=== PATIENT | male | born 2000 | race Caucasian/White ===

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

== ENCOUNTER → 2019-09-15 | Outpatient (CLI) | payer BC ==
--- NOTE | 2019-09-18 09:23 | NM ---
EXAM DESCRIPTION: Bone Scan, limited: Nuclear Medicine CLINICAL HISTORY: 19 years Male SPONDYLOSIS W/O MYELOPATHY OR RADICULOPATHY, LOW BACK PAIN COMPARISON: MRI lumbar spine September 2017. TECHNIQUE: Patient injected with 26.4 mCi of technetium 99M MDP IV. Delayed gamma camera images lower thoracic spine, lumbar spine, and upper pelvis from various planes were obtained 3 hr after injection. SPECT imaging in 3 planes was also performed. FINDINGS: Focal abnormal uptake in the vicinity of the left L5-S1 facet. Also the superior S1 endplate. In the lumbar endplates, vertebral bodies, and canal and posterior elements show normal activity. Normal soft tissue uptake. IMPRESSION: Activity in the left L5-S1 facet consistent with arthrosis seen on the prior MRI scan. Activity in the superior S1 endplate could represent spondylosis which was not seen on the prior MRI scan. Consider follow-up MRI scan or five-view lumbar spine x-ray series including oblique images. Electronically signed by: Candelario Rowan MD 09/18/2019 9:22 AM CDT
== END ==
LOC: NM 08:43
PROVIDERS: ATTEND Anesthesiology
DX: M47.816 Spondylosis without myelopathy or radiculopathy, lumbar region (principal); F40.231 Fear of injections and transfusions; Z79.899 Other long term (current) drug therapy; Z68.24 Body mass index [BMI] 24.0-24.9, adult
CPT/HCPCS: 78300; A9503